=== PATIENT | male | born 1990 | race Caucasian/White ===

== ENCOUNTER 2018-07-30 22:37 | Emergency (ER) | payer OTHER ==
[~2018-07-30] VITALS: Ht 185.4 cm; Wt 100.0 kg
--- NOTE | 2018-07-30 22:56 | NUR ---
PT. TO ROOM VIA W/C FOR C/O LOWER BACK PAIN AFTER FALLING DOWN STAIRS WHEN HIS DOG KNOCKED HIM OVER TONIGHT. PT. DENIES NECK PAIN. PT. WAS ABLE TO STAND FROM W/C AND TRANSFER SELT TO BED. PLACED INTO GOWN. BED POSITION CHANGED FOR COMFORT. PT. REPORTS INABILITY TO FEEL TOUCH TO HIS LEFT LEG AND IS UNABLE TO WIGGLE LEFT TOES WHEN ASKED. PT. ALSO REPORTS INABILITY TO WALK AFTER THE FALL. DENIES ANY INCONTINENCE. GRANDPARENTS AT FOR SUPPORT. CALL LIGHT IN REACH. AWAITING PROVIDER EVAL.
[2018-07-30] MEDS ORDERED: HYDROmorphone 2 MG/ML, 1ML IM ONE (23:30)
[2018-07-30] MEDS ORDERED: ONDANSETRON 2MG/ML, 2ML IVPush ONE (23:30)
[2018-07-30] MEDS ORDERED: DIAZEPAM 5 MG TABLET PO ONE (23:30)
--- NOTE | 2018-07-30 23:33 | NUR ---
PT. TO CT VIA [facility].
[2018-07-30] MEDS ORDERED: ONDANSETRON ODT 4 MG ONE (23:47)
[2018-07-30] MEDS ORDERED: HYDROmorphone 2 MG/ML, 1ML ONE (23:48)
[2018-07-30] MEDS ORDERED: DIAZEPAM 5 MG TABLET ONE (23:48)
[2018-07-31] MEDS ORDERED: ONDANSETRON ODT 4 MG PO ONE
--- NOTE | 2018-07-31 01:00 | NUR ---
REPORT TO TERA WYATT TO ASSUME PT. CARE. PT. WAS ABLE TO AMBULATE TO BR AND BACK TO ROOM WITH STEADY GAIT.
[2018-07-31 01:04] VITALS: BP 116/55
== END 2018-07-31 01:06 | disposition home or self-care (01) ==
LOC: ED 22:49
DX: S39.012A Strain of muscle, fascia and tendon of lower back, initial encounter (principal); S16.1XXA Strain of muscle, fascia and tendon at neck level, initial encounter; R51 Headache; F17.200 Nicotine dependence, unspecified, uncomplicated; Z88.0 Allergy status to penicillin; W10.9XXA Fall (on) (from) unspecified stairs and steps, initial encounter; Y93.89 Activity, other specified; Y92.009 Unspecified place in unspecified non-institutional (private) residence as the place of occurrence of the external cause; Y99.8 Other external cause status
CPT/HCPCS: 70450; 72110; 72125; 99284; J1170; Q0162

== ENCOUNTER 2018-11-16 20:01 | Emergency (ER) | payer OTHER ==
[~2018-11-16] VITALS: Ht 185.4 cm; Wt 98.4 kg
--- NOTE | 2018-11-16 20:10 | NUR ---
assessment made. chart up for MD to see.
--- NOTE | 2018-11-16 20:15 | NUR ---
PA student at bedside for patient's evaluation.
[2018-11-16] MEDS ORDERED: HYDROcodone/APAP 5/325 TABLET PO STA (20:21)
--- NOTE | 2018-11-16 20:25 | NUR ---
X ray at bedside.
[2018-11-16] MEDS ORDERED: HYDROcodone/APAP 5/325 TABLET ONE (20:28)
[2018-11-16 21:10] VITALS: BP 129/72
--- NOTE | 2018-11-16 21:10 | NUR ---
re-evaluation done. air splint applied. crutches provided. discharged with prescription and instruction. verbalized understanding.
== END 2018-11-16 21:12 | disposition home or self-care (01) ==
LOC: ED 20:50
DX: S93.492A Sprain of other ligament of left ankle, initial encounter (principal); X58.XXXA Exposure to other specified factors, initial encounter; Y93.89 Activity, other specified; Y92.009 Unspecified place in unspecified non-institutional (private) residence as the place of occurrence of the external cause; Y99.8 Other external cause status
CPT/HCPCS: 99283